=== PATIENT | male | born 1965 | race Caucasian/White ===

== ENCOUNTER → 2016-09-24 | Day surgery (SDC) | payer OTHER ==
[~2016-09-24] MED LIST: CLOT10TR SUCK-ON; LACTATED RINGER'S 1000 ML INJ 1,000 ML ONE; OXYC-360 PO; PROPOFOL 500 MG/50 ML BTL IV ONE
== END | disposition home or self-care (01) ==
LOC: ESDC 09:49
PROVIDERS: ATTEND Internal Medicine Gastroenterology
DX: Z12.11 Encounter for screening for malignant neoplasm of colon (principal); Z80.0 Family history of malignant neoplasm of digestive organs; D12.0 Benign neoplasm of cecum; R13.10 Dysphagia, unspecified; K29.70 Gastritis, unspecified, without bleeding; K20.9 Esophagitis, unspecified; K22.4 Dyskinesia of esophagus
CPT/HCPCS: 00740; 00810; 43239; 43248; 45380; 88305; J3010; J7120

== ENCOUNTER → 2017-04-11 | Outpatient (CLI) | payer OTHER ==
[~2017-04-11] MED LIST changes: -LACTATED RINGER'S 1000 ML INJ 1,000 ML ONE; -PROPOFOL 500 MG/50 ML BTL IV ONE
[2017-04-11 09:07] LABS: HEMATOCRIT 47.4 % (39.0-51.0); MEAN CELL VOLUME 85.8 FL (80.0-100.0); MEAN CORPUSCULAR HEMOGLOBIN 29.3 PG (27.0-34.0); MEAN CORPUSCULAR HGB CONC 34.1 % (32.0-36.0); PLATELET COUNT 237 TH/MM3 (150-450); RED BLOOD COUNT 5.52 MIL/MM3 (4.50-5.90); RED CELL DISTRIBUTION WIDTH 12.9 % (11.6-17.2); WHITE BLOOD COUNT 6.9 TH/MM3 (4.0-11.0)
[2017-04-11 09:16] LABS: HEMO FLAGS AUTO DIFF
[2017-04-11 09:19] LABS: ANION GAP 7 MEQ/L (5-15); AST (GOT) 35 U/L (15-37); BICARBONATE 24.9 MEQ/L (21.0-32.0); BLOOD UREA NITROGEN 14 MG/DL (7-18); CHLORIDE 105 MEQ/L (98-107); GLOMERULAR FILTRATION RATE 70 ML/MIN (>89); GLUCOSE,FASTING 99 MG/DL (74-99); POTASSIUM 4.2 MEQ/L (3.5-5.1); SODIUM (NA) 137 MEQ/L (136-145)
[2017-04-11 09:23] LABS: ALKALINE PHOSPHATASE 76 U/L (45-117); ALT (GPT) 61 U/L (12-78); HDL CHOLESTEROL 34.7 MG/DL (40.0-60.0); LDL CHOLESTEROL 139 MG/DL (0-99); TOTAL BILIRUBIN ADULT 0.5 MG/DL (0.2-1.0)
[2017-04-11 09:26] LABS: EOSINOPHILS 6 % (0-4); NEUTROPHIL # MANUAL DIFF 4.5 TH/MM3 (1.8-7.7); POLYS (SEG NEUTROPHILS) 65 % (16-70); WBC DIFF SAMPLE 100
[2017-04-11 09:27] LABS: PLATELET ESTIMATE SMEAR NORMAL (NORMAL); PLATELET MORPHOLOGY NORMAL (NORMAL); SCAN/DIFF FINAL DIFF MANUAL
[2017-04-11 17:18] LABS: MAGNESIUM 2.3 MG/DL (1.5-2.5)
== END ==
LOC: OLAB 07:03
PROVIDERS: ATTEND Family Medicine
DX: N40.0 Benign prostatic hyperplasia without lower urinary tract symptoms (principal); R07.89 Other chest pain; R03.0 Elevated blood-pressure reading, without diagnosis of hypertension
CPT/HCPCS: 80053; 80061; 83735; 84153; 85007; 85027